=== PATIENT | male | born 1945 | race Caucasian/White ===

== ENCOUNTER 2016-06-26 11:03 | Inpatient (IN) | payer OTHER ==
[~2016-06-26] VITALS: Ht 167.6 cm; Wt 81.8 kg
[2016-06-26] MEDS ORDERED: DUONEB INH ONE ×2 (12:19)
[2016-06-26] MEDS ORDERED: METHYLPRED SOD SUCC 125 MG/2 ML VIAL ONE (12:21)
[2016-06-26] MEDS ORDERED: SALINE FLUSH 10 ML FLUSH PRN (14:45)
[2016-06-26] MEDS ORDERED: ENOXAPARIN 40 MG/0.4 ML SYR SUBQ SCH (14:45)
[2016-06-26] MEDS ORDERED: GLUCAGON 1 MG VIAL IM PRN (14:55)
[2016-06-26] MEDS ORDERED: DEXTROSE 50% SYRINGE 50 ML IV PRN (14:55)
[2016-06-26 16:40] VITALS: BP_SYST 118; BP_SYST 122; RESP 18; TEMP 97.5; Ht 167.6 cm; Wt 81.8 kg
[2016-06-26] MEDS ORDERED: AZITHROMYCIN 250 MG TAB PO ONE (16:40)
[2016-06-26] MEDS ORDERED: NEB-BROVANA 15 MCG/2 ML INH ONE (16:41)
[2016-06-26] MEDS: DIGOXIN 0.125 MG TAB PO SCH (16:46)
[2016-06-26] MEDS: LISINOPRIL 10 MG TAB PO SCH (16:46)
[2016-06-26] MEDS: DUONEB INH SCH ×2 (16:52→23:22)
[2016-06-26 16:53] VITALS: RESP 16
[2016-06-26] MEDS: NEB-BROVANA 15 MCG/2 ML INH SCH (16:53)
[2016-06-26] MEDS: Furosemide 40 MG TAB PO SCH (17:00)
[2016-06-26] MEDS: ASPIRIN EC 81 MG TAB PO SCH (17:42)
[2016-06-26] MEDS: PREDNISONE 20 MG TAB PO SCH (17:43)
[2016-06-26 19:29] VITALS: BP_SYST 107; TEMP 98.7
[2016-06-26 19:30] VITALS: RESP 18
[2016-06-26] MEDS ORDERED: Atorvastatin 40 MG TAB PO SCH (21:00)
[2016-06-26] MEDS: Carvedilol 6.25 MG TAB PO SCH (21:12)
[2016-06-26] MEDS: SALINE FLUSH 10 ML FLUSH SCH (21:13)
[2016-06-26 23:34] VITALS: BP_SYST 117; TEMP 97.9
[2016-06-26 23:35] VITALS: RESP 18
[2016-06-27] VITALS (9 sets, daily range): BP systolic 90–118; RESP 16–20; TEMP 97.6–98.2
[2016-06-27] MEDS ORDERED: SODIUM CHLORIDE 0.9% FLUSH BAG 500 ML IV SCH (06:00)
[2016-06-27] MEDS: DUONEB INH SCH (07:24)
[2016-06-27] MEDS: NEB-BROVANA 15 MCG/2 ML INH SCH (07:24)
[2016-06-27] MEDS: Carvedilol 6.25 MG TAB PO SCH (08:40)
[2016-06-27] MEDS: SALINE FLUSH 10 ML FLUSH SCH (08:40)
[2016-06-27] MEDS: Furosemide 40 MG TAB PO SCH (08:40)
[2016-06-27] MEDS: PREDNISONE 20 MG TAB PO SCH (08:40)
[2016-06-27] MEDS: ASPIRIN EC 81 MG TAB PO SCH (08:40)
[2016-06-27] MEDS: LISINOPRIL 10 MG TAB PO SCH (08:43)
[2016-06-27] MEDS ORDERED: AZITHROMYCIN 250 MG TAB PO SCH (09:00)
[2016-06-27] MEDS: DIGOXIN 0.125 MG TAB PO SCH (11:37)
== END 2016-06-27 15:52 | disposition home or self-care (01) | DRG 191 ==
LOC: ENRESERVDT → ENRESERVTM → ER 11:03 → ENPENDDIS 14:42 → EMR 14:42 → 3NT 16:38
PROVIDERS: ADMIT Internal Medicine; ATTEND Internal Medicine
DX: J44.1 Chronic obstructive pulmonary disease with (acute) exacerbation (principal); I50.42 Chronic combined systolic (congestive) and diastolic (congestive) heart failure; I25.10 Atherosclerotic heart disease of native coronary artery without angina pectoris; Z95.5 Presence of coronary angioplasty implant and graft; Z87.891 Personal history of nicotine dependence; E11.8 Type 2 diabetes mellitus with unspecified complications; F43.10 Post-traumatic stress disorder, unspecified; Z95.0 Presence of cardiac pacemaker; Z79.01 Long term (current) use of anticoagulants
CPT/HCPCS: 36415; 71020; 80048; 80053; 82553; 82803; 82947; 83880; 84484; 85025; 85610; 87071; 93005; 94640; 94799; 96374; 99223